=== PATIENT | female | born 1950 | race African-American/Black ===

== ENCOUNTER → 2018-02-17 | Outpatient (REF) | payer OTHER ==
[2018-02-17 16:57] LABS: ESTIMATED AVERAGE GLUCOSE 128 MG/DL (60-110); HEMOGLOBIN A1c 6.1 %
[2018-02-17 17:02] LABS: ALBUMIN 4.1 GM/DL (3.2-5.2); ALBUMIN/GLOBULIN RATIO 1.14 (1.00-1.93); ALKALINE PHOSPHATASE 60 U/L (45-117); ALT/SGPT 24 U/L (12-78); ANION GAP 7 MEQ/L (8-16); AST/SGOT 21 U/L (7-37); BILIRUBIN,TOTAL 0.4 MG/DL (0.2-1.0); BLOOD UREA NITROGEN 20 MG/DL (7-18); CALCIUM LEVEL 9.8 MG/DL (8.8-10.2); CARBON DIOXIDE LEVEL 30 MEQ/L (21-32); CHLORIDE LEVEL 110 MEQ/L (98-107); CHOLESTEROL LEVEL 200 MG/DL (<200); CHOLESTEROL RISK RATIO 3.125 (<5); CREATININE FOR GFR 0.89 MG/DL (0.55-1.30); GLOMERULAR FILTRATION RATE > 60.0 (>45); GLUCOSE, FASTING 84 MG/DL (70-100); HDL CHOLESTEROL 64 MG/DL (>40); NON-HDL-C 136 MG/DL; POTASSIUM SERUM 4.7 MEQ/L (3.5-5.1); SODIUM LEVEL 147 MEQ/L (136-145); THYROID STIMULATING HORMONE 0.828 uIU/ML (0.358-3.740); TOTAL PROTEIN 7.7 GM/DL (6.4-8.2); TRIGLYCERIDES LEVEL 45 MG/DL (<150)
[2018-02-19 10:40] LABS: HEPATITIS C VIRUS ABY INDEX 0.5 INDEX (<0.8)
== END ==
LOC: M SFHCLERA 11:59
DX: E66.9 Obesity, unspecified (principal); Z11.59 Encounter for screening for other viral diseases
CPT/HCPCS: 84443

== ENCOUNTER → 2018-02-24 | Outpatient (CLI) | payer OTHER | LOC: M RAD 10:09 | DX: Z12.31 Encounter for screening mammogram for malignant neoplasm of breast (principal) | CPT/HCPCS: 77067 ==

== ENCOUNTER → 2018-03-08 | Outpatient (CLI) | payer OTHER | LOC: M WHC 08:07 | DX: Z13.820 Encounter for screening for osteoporosis (principal) | CPT/HCPCS: 77080 ==

== ENCOUNTER → 2018-03-10 | Outpatient (REF) | payer OTHER ==
[2018-03-12 14:57] LABS: HPV HYBRID CAPTURE II Negative (Negative)
== END ==
LOC: M SFHCLERA 14:29
DX: Z12.4 Encounter for screening for malignant neoplasm of cervix (principal)

== ENCOUNTER 2018-04-30 07:50 | Day surgery (SDC) | payer OTHER ==
[2018-04-30] MEDS: NS 1,000 ML IV (08:00)
[2018-04-30] MEDS ORDERED: PROPOFOL 500 MG/50 ML VIAL As Ordered (09:17)
[2018-04-30] MEDS ORDERED: LIDOCAINE 2% INJ 100 MG/5 ML SDV (FOR ANES.) As Ordered (09:17)
== END 2018-04-30 15:05 | disposition home or self-care (01) ==
LOC: M OPP 07:50
DX: Z12.11 Encounter for screening for malignant neoplasm of colon (principal); Q43.8 Other specified congenital malformations of intestine; M19.90 Unspecified osteoarthritis, unspecified site; Z78.0 Asymptomatic menopausal state
CPT/HCPCS: G0121

== ENCOUNTER → 2018-11-23 | Outpatient (CLI) | payer OTHER ==
[~2018-11-23] MED LIST: ALEN10TA20 PO; NAPR-885 PO
--- NOTE | 2018-11-24 01:02 | REP ---
Clinical: Bilateral hand pain. Technique: AP and lateral views of the right and left hand. Findings: Right hand demonstrates moderate osteoarthritic degenerative changes involving the second through fifth interphalangeal joints and first metacarpophalangeal joint including periarticular sclerosis and joint space narrowing which is most pronounced at the fifth proximal interphalangeal joint. Early advanced degenerative changes are also identified at the first interphalangeal joint where periarticular sclerosis, joint space narrowing and marginal osteophytosis is identified. Subchondral sclerosis and joint space narrowing at the radiocarpal joint and carpal metacarpal joint lines of the wrist are also identified. Left hand demonstrates essentially similar but slightly less pronounced osteoarthritic degenerative changes through the hand and wrist. Impression: Osteoarthritic degenerative changes noted bilaterally (right greater than left). Electronically Signed by Issac Rouse MD 11/24/2018 12:54 A
== END ==
LOC: M LRY 17:03
PROVIDERS: ATTEND Family Medicine
DX: M19.041 Primary osteoarthritis, right hand (principal); M19.042 Primary osteoarthritis, left hand; M79.642 Pain in left hand; M79.641 Pain in right hand

== ENCOUNTER → 2018-11-23 | Outpatient (REF) | payer OTHER ==
[2018-11-23 20:42] LABS: ALBUMIN 4.1 GM/DL (3.2-5.2); ALT/SGPT 21 U/L (12-78); BILIRUBIN,TOTAL 0.3 MG/DL (0.2-1.0); BLOOD UREA NITROGEN 20 MG/DL (7-18); C REACTIVE PROTEIN QUANTITATIV < 0.30 MG/DL (0.00-0.30); CALCIUM LEVEL 9.8 MG/DL (8.8-10.2); CARBON DIOXIDE LEVEL 31 MEQ/L (21-32); CHLORIDE LEVEL 109 MEQ/L (98-107); CREATININE FOR GFR 0.84 MG/DL (0.55-1.30); GLOMERULAR FILTRATION RATE > 60.0 (>45); GLUCOSE, FASTING 95 MG/DL (70-100); POTASSIUM SERUM 4.1 MEQ/L (3.5-5.1); RHEUMATOID FACTOR QUANT < 10.0 IU/ML (<15.0); SODIUM LEVEL 143 MEQ/L (136-145); TOTAL PROTEIN 7.3 GM/DL (6.4-8.2); URIC ACID 4.3 MG/DL (2.6-6.0)
[2018-11-23 20:43] LABS: BASO % 0.6 % (0.0-1.0); EOS # 0.1 10^3/uL (0.0-0.50); EOS % 0.7 % (0.0-3.0); HEMATOCRIT 40.1 % (36.0-47.0); HEMOGLOBIN 12.4 g/dl (12.0-15.5); LYMPH # 3.2 10^3/uL (1.5-4.5); LYMPH % 47.3 % (24.0-44.0); MEAN CORPUSCULAR HEMOGLOBIN 21.2 pg (27.0-33.0); MEAN CORPUSCULAR HGB CONC 30.9 g/dl (32.0-36.5); MEAN CORPUSCULAR VOLUME 68.4 fl (80.0-96.0); MONO # 0.7 10^3/uL (0.0-0.8); MONO % 9.9 % (0.0-5.0); NEUTROPHILS # 2.8 10^3/uL (1.8-7.7); NEUTROPHILS % 41.4 % (36.0-66.0); PLATELET COUNT, AUTOMATED 233 10^3/uL (150-450); RED BLOOD COUNT 5.86 10^6/uL (4.00-5.40); WHITE BLOOD COUNT 6.8 10^3/uL (4.0-10.0)
[2018-11-23 22:42] LABS: ERYTHROCYTE SEDIMENTATION RATE 4 mm/hr (0-30)
[2018-11-27 00:06] LABS: ANA (HEP2) Negative (.); CYCLIC CITRULLINATED PEPTIDE 13 units (0-19)
== END ==
LOC: M SFHCLERA 16:52
PROVIDERS: ATTEND Family Medicine
DX: M79.642 Pain in left hand (principal)

== ENCOUNTER → 2019-06-10 | Outpatient (CLI) | payer OTHER ==
[~2019-06-10] MED LIST changes: -ALEN10TA20 PO; +ALEN10TA21 PO
--- NOTE | 2019-06-10 11:32 | REP ---
BILATERAL SCREENING MAMMOGRAM WITH 3-D TOMOSYNTHESIS: Bilateral screening mammogram performed in the MLO and CC projections with 3-D tomosynthesis. There is no family history of breast cancer. Tyrer-Cuzick lifetime risk of breast cancer 4.7%. Comparison prior study 02/24/2018. Breast parenchyma is predominantly fatty replaced. Two stable well circumscribed nodules are again seen in the upper outer quadrant of the right breast. There is a new small lobulated nodule in the upper inner right breast. This is no definitely seen on the prior study. It is best seen on tomographic images. Maximum diameter is approximately 6 mm. On the MLO view it appears that this represents either an intramammary lymph node with a fatty hilum or two adjacent nodules. No other new mass is seen. No clustered microcalcifications are seen. IMPRESSION: BIRADS 0: BI-RADS/ACR category 0 mammogram, Incomplete: Need additional imaging evaluation and/or prior mammograms for comparison. New nodule upper inner right breast 6 mm maximally. This may represent an intramammary lymph node or two adjacent small nodules as seen on the MLO views. Recommend spot compression views and ultrasound for further evaluation. ACR 0 incomplete. This mammogram was interpreted with the aid of an FDA-approved computer-aided detection system. The patient states she has not had a clinical breast exam in over a year. The patient letter being requested is M0. Electronically Signed by Oliver Guerin MD 06/13/2019 09:12 A
== END ==
LOC: M RAD 08:59
PROVIDERS: ATTEND Family Medicine
DX: Z12.31 Encounter for screening mammogram for malignant neoplasm of breast (principal)

== ENCOUNTER → 2019-06-23 | Outpatient (CLI) | payer OTHER, SELFPAY ==
--- NOTE | 2019-06-23 16:31 | REP ---
DIAGNOSTIC MAMMOGRAM RIGHT BREAST WITH RIGHT BREAST ULTRASOUND: Real-time spot compression views of the right breast were performed and correlated with the recent mammogram 06/10/2019. Medially in the right breast there is a 6 mm nodule which may have slightly decreased in size since the prior study. Real-time sonographic evaluation of the medial right breast demonstrates a 5 mm cyst corresponding to the mammographic abnormality, located at 1 o'clock position. The finding is benign. IMPRESSION: ACR 2 benign. 6 mm nodule medial right breast corresponds to a benign cyst by ultrasound. Followup mammogram is recommended in one year. BIRADS 2: BI-RADS/ACR category 2 mammogram. Benign Findings. Electronically Signed by Oliver Guerin MD 06/23/2019 04:57 P
== END ==
LOC: M RAD 13:08
PROVIDERS: ATTEND Family Medicine
DX: Z12.31 Encounter for screening mammogram for malignant neoplasm of breast (principal)